=== PATIENT | male | born 1985 | race Asian ===

== ENCOUNTER 2019-01-10 20:46 | Emergency (ER) | payer OTHER ==
[~2019-01-10] VITALS: Ht 182.9 cm; Wt 76.2 kg
[2019-01-10 20:48] VITALS: BP 102/60
--- NOTE | 2019-01-10 21:55 | NUR ---
emt applied splint -with cms intact
== END 2019-01-10 22:12 | disposition home or self-care (01) ==
LOC: ED 21:39
DX: S60.221A Contusion of right hand, initial encounter (principal); W22.01XA Walked into wall, initial encounter; Y93.89 Activity, other specified; Y92.009 Unspecified place in unspecified non-institutional (private) residence as the place of occurrence of the external cause; Y99.8 Other external cause status
CPT/HCPCS: 29125; 99283